=== PATIENT | female | born 1955 | race Caucasian/White ===

== ENCOUNTER 2024-02-19 23:45 | Emergency (ER) | payer MEDICARE ==
[~2024-02-19] VITALS: Ht 154.9 cm; Wt 94.4 kg
[2024-02-20] MEDS ORDERED: LEVOTHYROXINE125 MCG PO (00:06)
[2024-02-20] MEDS ORDERED: LISINOPRIL40 MG PO (00:06)
[2024-02-20] MEDS ORDERED: METOPROLOL SUCC50 MG PO (00:07)
[2024-02-20] MEDS ORDERED: METFORMIN HCL1000 MG PO (00:07)
[2024-02-20 00:22] LABS: BASOPHILS 1.1 % (0-2); EOSINOPHILS 2.2 % (0-6); HEMATOCRIT 39.8 % (35.0-50.0); HEMOGLOBIN 13.2 g/dL (12.0-18.0); LYMPHOCYTES 20.4 % (24-44); MCH 28.8 (27-36); MCHC 33.2 g/dl (30-36); NEUTROPHILS 69.3 % (39-80); PLATELET COUNT 258 K/uL (140-440); RBC 4.58 M/ul (4.3-5.7)
[2024-02-20 00:45] LABS: ALBUMIN 3.8 g/dL (3.4-5.0); ALBUMIN/GLOBULIN RATIO 0.93 (1.1-2.4); ALCOHOL, MEDICAL <3 ng/dL (<3); ALKALINE PHOSPHATASE 90 U/L (46-116); ALT (SGPT) 19 U/L (14-59); AMYLASE 94 U/L (25-115); ANION GAP 18.3 (7-21); AST (SGOT) 21 U/L (15-37); BILIRUBIN, TOTAL 0.4 ng/dL (0.2-1.0); BUN/CREATININE RATIO 17.51 (6.0-28.6); CALCIUM 9.7 mg/dL (8.5-10.1); CARBON DIOXIDE 20 mmol/L (21-32); CHLORIDE 104 mmol/L (98-107); CREATININE, SERUM 1.77 mg/dL (0.55-1.02); GLOMERULAR FILTRATION RATE,EST 31 mL/min (>60); POTASSIUM 4.3 mmol/L (3.5-5.1); PROTEIN, TOTAL 7.9 g/dL (6.4-8.2); UREA NITROGEN 31 mg/dL (7-18)
[2024-02-20] MEDS ORDERED: ondansetron HCL 4 MG/2 ML VIAL IV ONE (01:30)
[2024-02-20] MEDS ORDERED: HYDROmorphone HCL 1 MG/ML SYR IV PRN (01:30)
[2024-02-20 01:41] LABS: AMPHETAMINES, URINE NEGATIVE (NEGATIVE); BARBITURATES, URINE NEGATIVE (NEGATIVE); BENZODIAZEPINE, URINE NEGATIVE (NEGATIVE); BUPRENORPHINE, URINE NEGATIVE (NEGATIVE); CANNABINOID, URINE NEGATIVE (NEGATIVE); COCAINE, URINE NEGATIVE (NEGATIVE); ECSTASY, URINE NEGATIVE (NEGATIVE); FENTANYL, URINE NEGATIVE (NEGATIVE); METHADONE, URINE NEGATIVE (NEGATIVE); OPIATES, URINE NEGATIVE (NEGATIVE); OXYCODONE, URINE NEGATIVE (NEGATIVE); PHENCYCLIDINE, URINE NEGATIVE (NEGATIVE)
[2024-02-20] MEDS ORDERED: HYDROCODON-ACE1 EA10 PO (01:54)
[2024-02-20] MEDS ORDERED: HYDROCODONE BIT/ACETAMINOPHEN 5/325 MG 1 TAB HOME.PACK PO PRN (02:00)
[2024-02-20 02:25] VITALS: BP 129/63
== END 2024-02-20 02:30 | disposition home or self-care (01) ==
LOC: ED 23:45
PROVIDERS: Emergency Medicine
DX: S20.212A Contusion of left front wall of thorax, initial encounter (principal); S10.93XA Contusion of unspecified part of neck, initial encounter; S20.222A Contusion of left back wall of thorax, initial encounter; S30.1XXA Contusion of abdominal wall, initial encounter; W18.39XA Other fall on same level, initial encounter; R42 Dizziness and giddiness; I10 Essential (primary) hypertension; E11.9 Type 2 diabetes mellitus without complications; E03.9 Hypothyroidism, unspecified; Z79.84 Long term (current) use of oral hypoglycemic drugs; Z79.890 Hormone replacement therapy; Z79.899 Other long term (current) drug therapy; Z88.2 Allergy status to sulfonamides
CPT/HCPCS: 36415; 70450; 71250; 72125; 74176; 80053; 80307; 82150; 85025; 96374; 96375; 99284-25; A9270; G0480; J1170; J2405